=== PATIENT | female | born 1970 | race Caucasian/White ===

== ENCOUNTER 2017-03-05 12:57 | Emergency (ER) | payer OTHER ==
[2017-03-05] MEDS ORDERED: LIDOCAINE 1% 10 ML VIAL INJ ONE (13:16)
[2017-03-05] MEDS ORDERED: NEOMYCIN-BACITRACIN-POLYMYXIN 0.9 GM UD TOP ONE (13:19)
[2017-03-05 13:20] VITALS: TEMP 97.7
[2017-03-05] MEDS ORDERED: SULFA/TRIMETH 800/160 (DS) TAB 1 EA TAB PO ONE (13:37)
--- NOTE | 2017-03-05 13:39 | ED.PDOC ---
History of Present Illness - General Chief Complaint: Laceration Stated Complaint: laceration Time Seen by Provider: 03/05/17 13:37 Source: patient Exam Limitations: no limitations - History of Present Illness Initial Comments: The patient is a 46-year-old female presenting to the emergency room secondary to a laceration to the tip of the palmar aspect of the third digit of the left hand. Laceration is approximately 1-1/2 cm in length and one third of a centimeter in width. It is fairly superficial but does make it through the skin for a very small part. She is neurovascularly intact. There is no evidence of any bony injury or tendon laceration. It does not cross the joint. No other injuries. She cut it with a sausage meat trimmer at work. Urine drug screen is being collected for their protocol. The patient does not appear intoxicated. She does appear appropriate. Timing/Duration: 1/2 hour Severity: mild Improving Factors: nothing Worsening Factors: nothing Associated Symptoms: denies symptoms Allergies/Adverse Reactions: Allergies NO KNOWN ALLERGY Allergy (Verified 03/05/17 13:19) Review of Systems - Review of Systems Constitutional: States: no symptoms reported EENTM: States: no symptoms reported Respiratory: States: no symptoms reported Cardiology: States: no symptoms reported Gastrointestinal/Abdominal: States: no symptoms reported Genitourinary: States: no symptoms reported Musculoskeletal: States: no symptoms reported Skin: States: see HPI Neurological: States: no symptoms reported Endocrine: States: no symptoms reported All other Systems: No Change from Baseline Past Medical History (General) - Patient Medical History Hx Seizures: No Hx Stroke: No Hx Dementia: No Hx Asthma: Yes Hx of COPD: No Hx Cardiac Disorders: No Hx Congestive Heart Failure: No Hx Pacemaker: No Hx Hypertension: No Hx Thyroid Disease: No Hx Diabetes: No Hx Gastroesophageal Reflux: No Hx Renal Disease: No Hx Cancer: No Hx of HIV: No Hx Hepatitis C: No Hx MRSA: No Surgical History: tonsillectomy - Vaccination History Hx Tetanus, Diphtheria Vaccination: Yes Hx Influenza Vaccination: No - Social History Hx Tobacco Use: No Hx Alcohol Use: No Hx Substance Use: No Hx Substance Use Treatment: No Hx Depression: Yes Hx Physical Abuse: No Hx Emotional Abuse: No Hx Suspected Abuse: No Family Medical History - Family History Mother Living Status: Still Living Hx Family;Other: Thyroid. high cholesterol Physical Exam - Physical Exam General Appearance: Alert, Comfortable, No apparent distress Eye Exam: bilateral normal Ears, Nose, Throat: hearing grossly normal Neck: non-tender, full range of motion Respiratory: no respiratory distress, no accessory muscle use Cardiovascular/Chest: normal peripheral pulses, no edema Peripheral Pulses: radial,right: 2+, radial,left: 2+ Rectal Exam: deferred Extremity: normal range of motion, no pedal edema, normal capillary refill Neurologic: [employer] II-XII nml as tested, no motor/sensory deficits, alert, normal mood/affect, oriented x 3 Skin Exam: normal color - laceration as above Comments: Vital Signs (72 hours) 03/05/17 13:10 Temperature 97.7 F Pulse Rate [ 93 H pulse ox] Respiratory 20 Rate Blood Pressure 101/65 [Right Arm] O2 Sat by Pulse 97 Oximetry Progress - Progress Progress: 03/05/17 13:39 the patient is a 46-year-old female presenting with a laceration to the tip of the third digit of the left hand from a sausage meat trimmer at work. The wound was irrigated with water and then with hydrogen peroxide. the wound is actually too superficial to suture closed. Therefore the wound is left open and covered with an antibiotic ointment and a Band-Aid. The wound is hemostatic at this time. estimated blood loss in total was probably 3-5 cc. She should monitor for any evidence of infection. She was given 1 dose of Bactrim here prior to discharge. Urine drug screen is being sent off as per her employer's protocol. Departure - Departure Clinical Impression: Accidental laceration Disposition: Discharge to Home or Self Care Condition: Fair Departure Forms: ED Discharge - Pt. Copy, Patient Portal Self Enrollment Instructions: DI for Laceration Repair, DI for Abrasion Diet: regular diet Activity: increase activity as tolerated Additional Instructions: the patient is a 46-year-old female presenting with a laceration to the tip of the third digit of the left hand from a sausage meat trimmer at work. The wound was irrigated with water and then with hydrogen peroxide. the wound is actually too superficial to suture closed. Therefore the wound is left open and covered with an antibiotic ointment and a Band-Aid. The wound is hemostatic at this time. estimated blood loss in total was probably 3-5 cc. She should monitor for any evidence of infection. She was given 1 dose of Bactrim here prior to discharge. Urine drug screen is being sent off as per her employer's protocol.
[2017-03-05 14:31] VITALS: BP 88/65; O2SAT 98
== END 2017-03-05 14:31 | disposition home or self-care (01) ==
LOC: ER 12:57
DX: S61.213A Laceration without foreign body of left middle finger without damage to nail, initial encounter (principal); W31.89XA Contact with other specified machinery, initial encounter; Y92.9 Unspecified place or not applicable; Y99.0 Civilian activity done for income or pay

== ENCOUNTER → 2018-12-20 | Outpatient (CLI) | payer BC ==
--- NOTE | 2018-12-20 18:48 | US ---
EXAM DESCRIPTION: Renal CLINICAL HISTORY: 48 years Female, PROTEINURIA COMPARISON: None. TECHNIQUE: Retroperitoneal sonogram was performed to evaluate the kidneys and bladder. FINDINGS: Right kidney Right renal length is 11.5 cm. Renal cortical thickness and echogenicity are normal. No right renal mass, cyst or shadowing stone. No hydronephrosis. Left kidney Left renal length is 12.1 cm. Renal cortical thickness and echogenicity are normal. No left renal mass, cyst or shadowing stone. No hydronephrosis. Urinary bladder No images of the urinary bladder were submitted. IMPRESSION: Normal sonographic appearance of the kidneys. Electronically signed by: Prasad Moser MD 12/20/2018 6:47 PM CDT
== END ==
LOC: US 15:29
PROVIDERS: ATTEND Nurse Practitioner Family
DX: R80.9 Proteinuria, unspecified (principal)